=== PATIENT | female | born 1955 | race Two or more races ===

== ENCOUNTER 2024-06-16 06:59 | Day surgery (SDC) | payer OTHER ==
[~2024-06-16] VITALS: Ht 162.6 cm; Wt 68.0 kg
[~2024-06-16 06:59] MED LIST: ALEN70TA74 PO; ATOR20TA50 PO; DIVA-139 PO; DIVA-91 PO; DIVA-92 PO; DOCU-111 PO; HYDR25TA5 PO; LACO1TAB PO; LEVE100012 PO; LEVE500T40 PO; TOPI50TA53 PO; TRAZ-228 PO; TRIA37.586 PO
[2024-06-16] MEDS ORDERED: LIDOCAINE VISCOUS 2% 15ML UD ONE (08:49)
[2024-06-16] MEDS ORDERED: MEPERIDINE HCL (25 MG/ML) 1ML VIAL ONE (08:56)
[2024-06-16] MEDS ORDERED: fentaNYL CITRATE 100 MCG/2 ML VL ONE (08:56)
[2024-06-16] MEDS ORDERED: MIDAZOLAM HCL 2MG/2ML 2ml VIAL (1mg/ml) ONE (08:56)
[2024-06-16 09:25] VITALS: TEMP 97.8; O2SAT 99
[2024-06-16] MEDS ORDERED: PROPOFOL 10 MG/ML 20 ML IV ONE (09:38)
[2024-06-16] MEDS ORDERED: DexAMETHasone SOD PHOS 10MG/1ML VIAL INJ ONE (09:38)
[2024-06-16 10:10] VITALS: BP 93/58; PULSE 67; RESP 19; O2SAT 96
== END 2024-06-16 10:30 | disposition home or self-care (01) ==
LOC: GI 06:59
PROVIDERS: ATTEND Internal Medicine Gastroenterology
DX: K59.09 Other constipation (principal); D12.3 Benign neoplasm of transverse colon; K57.30 Diverticulosis of large intestine without perforation or abscess without bleeding; K64.8 Other hemorrhoids; R10.10 Upper abdominal pain, unspecified; R63.0 Anorexia; K29.50 Unspecified chronic gastritis without bleeding; K44.9 Diaphragmatic hernia without obstruction or gangrene; I10 Essential (primary) hypertension; E78.5 Hyperlipidemia, unspecified; G89.29 Other chronic pain; Z68.25 Body mass index [BMI] 25.0-25.9, adult; Z79.899 Other long term (current) drug therapy; Z86.73 Personal history of transient ischemic attack (TIA), and cerebral infarction without residual deficits; Z90.49 Acquired absence of other specified parts of digestive tract; Z98.890 Other specified postprocedural states
CPT/HCPCS: 43239; 45385; 88305; 88312; 88342; J1100; J2175; J2250; J2704; J3010; J7030